=== PATIENT | female | born 1965 | race Caucasian/White ===

== ENCOUNTER 2023-03-23 06:31 | Emergency (ER) | payer OTHER, SELFPAY ==
[2023-03-23 06:50] VITALS: BP 150/77; PULSE 82; O2SAT 98
[2023-03-23 06:54] VITALS: BP 161/78; PULSE 75; RESP 18; O2SAT 97; BMI 42.5
--- NOTE | 2023-03-23 06:54 | ED.GENADULT ---
HPI - General Adult General Chief complaint: Psychiatric Symptoms Stated complaint: drug use,si and seeking detox Time Seen by Provider: 03/23/23 06:53 Source: patient and EMS Mode of arrival: EMS Limitations: no limitations History of Present Illness HPI narrative: Patient is a 57 year old assigned female at with a history of alcohol abuse presenting to the emergency department today with suicidal ideation. Patient states that she is suicidal but does not have a plan. Patient states that she has also been on an alcohol binder and needs detox. Patient denies any dizziness, lightheadedness, abdominal pain, nausea, vomiting, fever, chills, blurry vision, double vision, loss of vision, chest pain, difficulty breathing, shortness of breath, back pain, night sweats, pain with urination, increased urinary frequency, increased urinary urgency, blood in her urine or stool, syncope or a near syncopal episode, recent trauma or falls, bowel incontinence, bladder incontinence, bowel retention, bladder retention, or any other complaints at this time. Relieving factors: none Exacerbating factors: none Associated symptoms: denies other symptoms Treatments prior to arrival: none Related Data Allergies Allergy/AdvReac Type Severity Reaction Status Date / Time No Known Allergies Allergy Verified 03/23/23 07:08 Review of Systems Constitutional: Constitutional: Reports no additional constitutional complaints, Denies chills, Denies fever(s) and Denies night sweats Eyes: Eyes: Reports no additional eye complaints, Denies blurry vision, Denies change in vision, Denies diplopia, Denies eye discharge, Denies loss of vision and Denies eye pain ENT: Denies dizziness Cardiovascular: Cardiovascular: Reports no additional cardiovascular complaints, Denies chest pain, Denies lightheadedness, Denies Loss of Consciousness and Denies dyspnea Respiratory: Respiratory: Reports no additional respiratory complaints and Denies dyspnea Gastrointestinal: Gastrointestinal: Reports no additional gastrointestinal complaints, Denies abdominal pain, Denies melena, Denies hematochezia, Denies change in bowel habits and Denies change in stool character Genitourinary: Genitourinary: Denies hematuria, Denies urinary frequency, Denies dysuria, Denies urinary incontinence, Denies urinary hesitancy and Denies urinary urgency Musculoskeletal: Musculoskeletal: Reports no additional musculoskeletal complaints, Denies numbness and Denies tingling Neurologic: Denies dizziness, Denies loss of vision, Denies numbness and Denies tingling Psychiatric: Psychiatric: Reports no additional psychiatric complaints Endocrine: Endocrine: Reports no additional endocrine complaints Hematologic/Lymphatic: Hematologic/Lymphatic: Reports no additional hematologic/lymphatic complaints Allergic/Immunologic: Allergic/Immunologic: Reports no additional allergic/immunologic complaints [facility] Past Medical History Attestation statement: The following information was validated with the patient. Source: old records reviewed and nursing notes reviewed Social History Social History Alcohol intake: current Alcohol intake frequency: 3 or more drinks per day Alcohol type: beer Smoked in Last 30 Days: Yes Use of substances other than those prescribed or required for medical reasons: Yes Substance Use Type: Crack/Cocaine Advance Directives: No Physical Exam ED Vital Signs: Vital Signs - 24 hr 03/23/23 06:54 03/23/23 06:58 03/23/23 11:29 Temperature 98.3 F 98.7 F Pulse Rate 75 70 78 Respiratory Rate 18 16 18 Blood Pressure 161/78 H 147/81 H 122/74 Pulse Oximetry 97 96 94 Oxygen Delivery Method Room Air Room Air Room Air 03/23/23 13:53 Temperature 97.5 F Pulse Rate 86 Respiratory Rate Blood Pressure 158/85 H Pulse Oximetry 93 Oxygen Delivery Method Room Air BMI result Body Mass Index 42.5 Const General: cooperative, no acute distress, alert and awake Nutritional Appearance: well nourished Orientation/consciousness: patient oriented x3 Limitations: no limitations [facility] Head: Yes normal to inspection and Yes atraumatic Ears: hearing grossly normal bilaterally and external ears normal General nose exam: Normal external nose present, no nasal discharge noted and no epistaxis Face and sinus: Yes normal facial exam, No abrasion and No laceration Mouth: Normal oral and palatal mucosa present, no drooling and no muffled voice Eyes General: appearance normal, both eyes and all related structures Periorbital: periorbital findings normal Eyelids: Yes eyelids normal Conjunctivae: conjunctivae normal Pupils: Equal, round and reactive pupils present EOM: EOMs intact bilaterally Neck Neck: Yes normal visual inspection, Yes full ROM and Yes no lymphadenopathy Chest Chest palpation & inspection: normal inspection of the chest Resp Effort & Inspection: normal respiratory effort and able to speak in complete sentences Auscultation: clear to auscultation bilaterally Cardio Rate: regular rate Rhythm: regular rhythm GI Inspection: Yes normal to inspection Palpation (GI): Soft to palpation, not firm, nontender and no guarding Neuro General: patient oriented x3 and moves all extremities Cranial nerves: Yes Equal, round and reactive pupils present Cognition (Neuro): normal cognition Motor exam (neuro): 5/5 motor strength present throughout Sensory Exam: Normal double simultaneous stimulation for sensation Coordination: [id number] test normal Extrem General: Yes normal to inspection, Yes full ROM and Yes capillary refill normal Psych Appearance: grossly normal Mental Status: mental status grossly normal Affect: normal affect Attitude: cooperative Thought process: Normal thought process present Thought content: Normal thought content present Insight: Good insight present (Psych) Medications Administered Discontinued Medications Generic Name Dose Route Start Last Admin Trade Name Magdalenoq PRN Reason Stop Dose Admin Hydroxyzine HCl 50 mg 03/23/23 14:39 03/23/23 14:44 Hydroxyzine Hcl 50 Mg Tablet PO 03/23/23 14:40 50 mg ONCE ONE Administration Lorazepam 2 mg 03/23/23 07:09 03/23/23 07:38 Lorazepam 1 Mg Tablet PO 03/23/23 07:10 2 mg ONCE ONE Administration Ondansetron HCl 4 mg 03/23/23 07:29 03/23/23 07:38 Ondansetron Odt 4 Mg Tab.Rapdis TRANSLINGU 03/23/23 07:30 4 mg ONCE ONE Administration Medical Decision Making Medical Decision Making [facility] Narrative: Patient is a 57 year old assigned female at with a history of alcohol abuse presenting to the emergency department today with suicidal ideation and alcohol abuse. Patient's physical exam was unremarkable. Patient's blood work was unremarkable. Patient's urine showed no acute process. Patient's EKG was unremarkable. I explained my physical exam findings as well as all test results to the patient. I answered all questions asked by the patient. Patient awaiting CARE team and recovery team evaluations. Differential Diagnosis Differential Diagnoses: The differential diagnosis associated with the presentation includes Suicidal ideation Alcohol abuse Lab Data MDM Lab Attestation statement: I reviewed the patient's lab results. My interpretation of these studies and their corresponding values is that they are grossly normal. 03/23/23 07:40 03/23/23 07:40 Labs: Lab Results 03/23/23 03/23/23 Range/Units 07:13 07:40 WBC 5.9 (4.8-10.8) X10*3/uL RBC 3.82 L (4.20-5.50) X10*6/uL Hgb 11.4 L (12.0-16.0) g/dl Hct 33.9 L (37.0-47.0) % MCV 88.7 (80.0-98.0) fL MCH 29.8 (27.0-33.0) pg MCHC 33.6 (31.0-35.0) g/dl RDW 12.2 (11.0-16.0) % Plt Count 225 (160-400) X10*3/uL MPV 11.1 (9.4-12.3) fL Immature Gran % (Auto) 0.7 H (0.0-0.4) % Neut % (Auto) 75.6 H (45-73) % Lymph % (Auto) 12.3 L (20-40) % [place] % (Auto) 7.9 (2-11) % Eos % (Auto) 3.0 (0-4) % Baso % (Auto) 0.5 (0-2) % Lymph # (Auto) 0.7 L (1.2-4.9) X10*3/uL [place] # (Auto) 0.5 (0.1-1.2) X10*3/uL Eos # (Auto) 0.2 (0.0-0.4) X10*3/uL Baso # (Auto) 0.0 (0.0-0.2) X10*3/uL Abs Immat Gran (auto) 0.04 H (0.00-0.03) X10*3/uL Absolute Neuts (auto) 4.5 (2.0-8.3) x10*3/uL Absolute Nucleated RBC 0.000 (0.0-0.012) X10*3/uL Nucleated RBC % (auto) 0.0 (0.0-0.2) /100WBC Sodium 138 (135-145) mmol/L Potassium 3.6 (3.3-5.1) mmol/L Chloride 99 (96-108) mmol/L Carbon Dioxide 28 (22-29) mmol/L Anion Gap 15 (12-20) BUN 10 (9-16) mg/dL Creatinine 0.68 (0.5-1.4) mg/dL Estim Creat Clear Calc 102.5 Estimated GFR > 60 Random Glucose 122 H (60-115) mg/dL Calcium 9.7 (8.4-10.2) mg/dL Total Bilirubin 0.5 (0.0-1.0) mg/dL AST 29 (5-31) U/L ALT 18 (0-31) U/L Alkaline Phosphatase 81 (39-117) U/L Total Protein 7.2 (6.5-8.0) g/dL Albumin 4.1 (3.5-5.0) g/dL Urine Color Yellow Urine Appearance Clear Urine pH 6.0 (5.0-9.0) Ur Specific [place] 1.010 (1.005-1.025) Urine Protein Negative (Neg-Trace) mg/dL Urine Glucose (UA) Negative (Negative) mg/dL Urine Ketones Negative (Negative) mg/dL Urine Blood Negative (Negative) Urine Nitrite Negative (Negative) Ur Leukocyte Esterase Trace H (Negative) Urine RBC 0-2 (0-2) /HPF Urine WBC 0-5 (0-5) /HPF Ur Squamous Epith Cells 0-2 (0-2) /HPF Urine Bacteria None Seen (None Seen) Hyaline Casts 0-2 (0-2) /LPF Salicylates < 5.0 L (15-30) mg/dL Urine Opiates Screen Not Detected (Not Detect) Urine Fentanyl Screen POSITIVE H (Not Detect) Acetaminophen < 17 (<30) mcg/mL Ur Barbiturates Screen Not Detected (Not Detect) Ur Phencyclidine Scrn Not Detected (Not Detect) Ur Amphetamines Screen Not Detected (Not Detect) U Benzodiazepines Scrn Not Detected (Not Detect) Urine Cocaine Screen POSITIVE H (Not Detect) U Marijuana (THC) Screen Not Detected (Not Detect) Ethyl Alcohol < 10 mg/dL COVID-19 (MIESHA) Negative (Negative) COVID-19 Clin Com See Note Independent Interpretation I performed an independent interpretation of an: EKG Interpretation: Vent. Rate: 068 BPM Atrial Rate: 068 BPM P-R Int: 148 ms QRS Dur: 094 ms QT Int: 406 ms P-R-T Axes: 061 -15 028 degrees QTc Int: 431 ms Normal sinus rhythm Low voltage QRS Borderline ECG No previous ECGs available Electronically Signed By:DELORES CHAUDHARY DOFACP Dictated By: Delores Chaudhary DO Signed By: Electronically signed by Delores Chaudhary DO 03/23/23 1153 Discharge Plan Discharge Clinical Impression: Suicidal ideation, Alcohol use Patient Disposition: Still a Patient Interventions: Lares-Suicide Risk Severity Scale Last Done: 03/23/23 07:36
[2023-03-23 06:58] VITALS: BP 147/81; PULSE 70; RESP 16; TEMP 36.8; O2SAT 96
--- NOTE | 2023-03-23 06:58 | PC.NURSE ---
Pt reports stomach cramps and headache. UA collected. Pt reports she drank her last beer about an hr ago and smoked crack about 3 hrs ago Pt changed over and changed into hospital attire. Plan of care ongoing
--- NOTE | 2023-03-23 07:00 | PC.NURSE ---
Report and handover given to oncoming nurse.
--- NOTE | 2023-03-23 07:42 | PC.NURSE ---
pt is alert and oriented, skin pwd, respirations even and unlabored, pt reports binge drinking and using crack for the last three days, pt reports her last drink was beer prior to arrival to the ED, pt states that she does not have hx of withdrawl seizures, no visible tremor at this time, pt is reporting a headache and nausea. pt is reporting si but no plan at this time, pt is also looking for detox placement. pt is changed over into hospital attire upon this rn arrival and secured in the laundry room. sitter in place
[2023-03-23 11:29] VITALS: BP 122/74; PULSE 78; RESP 18; TEMP 37.1; O2SAT 94
--- NOTE | 2023-03-23 12:01 | PC.NURSE ---
pt sleeping, pt reports feeling much better denies nausea and headache improved 10
--- NOTE | 2023-03-23 12:06 | PC.NURSE ---
report given to Kathy rn in the pod
[2023-03-23 13:53] VITALS: BP 158/85; PULSE 86; TEMP 36.4; O2SAT 93
[2023-03-23 20:37] VITALS: BP 164/83; PULSE 75; RESP 20; TEMP 37.1; O2SAT 95
[2023-03-24 05:57] VITALS: BP 148/63; PULSE 60; RESP 18; TEMP 36.6; O2SAT 94
--- NOTE | 2023-03-24 07:00 | PC.NURSE ---
Patient slept through the night, no distress observed/reported, medication compliant, behavior non concerning, disposition per care team is section 12 dual diagnosis bed search, VSS, labs completed/resulted, will continue to monitor.
--- NOTE | 2023-03-24 09:02 | MHC.CARE ---
faxed patient info to [facility], they report having a possible bed
--- NOTE | 2023-03-24 11:04 | MHC.RECOVRN ---
This film writer met with patient, after receiving update from [facility], princess completed phone screen, pt has admission time 13:00 to present at [facility], this film writer will coordinate [employer] for patient.
== END 2023-03-24 12:18 ==
PROVIDERS: Emergency Provider Emergency Medicine Emergency Medical Services
DX: R45.851 Suicidal ideations (principal); F10.10 Alcohol abuse, uncomplicated; Y90.0 Blood alcohol level of less than 20 mg/100 ml; Z11.52 Encounter for screening for COVID-19; Z79.899 Other long term (current) drug therapy
CPT/HCPCS: 80053; 80143; 80179; 80307; 81001; 85025; 87635; 93005; 99285; S9485